=== PATIENT | female | born 1945 | race Caucasian/White ===

== ENCOUNTER 2023-07-27 07:07 | Inpatient (IN) | payer MEDICARE, OTHER ==
[~2023-07-27] VITALS: Ht 162.6 cm; Wt 56.0 kg
[2023-07-31] VITALS (8 sets, daily range): BP systolic 111–133; BP diastolic 76–86; PULSE 81–98; TEMP 97.7–98.1
--- NOTE | 2023-07-31 08:35 | NUR ---
PT DIRECT ADMITTED FOR INITIATION OF SOTALOL. PT IS AXOX3. PT IS ON RA. PT AMBULATES INDEPENDENTLY WITH A STEADY GAIT. PT'S VSS. PT ORIENTED TO ROOM AND FLOOR. IV AND BLOOD DRAWN. GORDY PAUL WITH CARDIOLOGY NOTIFIED OF ARRIVAL. EKG DONE. TELE PLACED AND PT SHOWING AFIB IN THE 90'S.
[2023-07-31] MEDS ORDERED: ZYRTEC 10MG10 MG PO (08:58)
[2023-07-31] MEDS ORDERED: ELIQUIS 5MG PO (08:58)
[2023-07-31] MEDS ORDERED: CARDIZEM CD 24240 MG PO (09:00)
[2023-07-31 09:19] LABS: BASO # 0.1 K/mm3 (0.0-0.2); BASO % 0.9 % (0.0-2.0); EOS # 0.1 K/mm3 (0.0-0.7); EOS % 0.9 % (0.0-4.0); GRAN # 3.8 K/mm3 (1.4-6.5); GRAN % 64.5 % (42.2-75.2); HEMATOCRIT 44.6 % (37.0-47.0); HEMOGLOBIN 15.2 g/dl (12.5-16.0); LYMPH # 1.5 K/mm3 (1.2-3.4); LYMPH % 25.6 % (20.0-51.0); MEAN CELL VOLUME 91 fl (80.0-100.0); MEAN CORPUSCULAR HEMOGLOBIN 31 pg (27-31); MEAN CORPUSCULAR HGB CONC 34 g/dl (33.0-37.0); MONO # 0.5 K/mm3 (0.1-0.6); MONO % 7.9 % (1.7-9.3); PLATELET COUNT 267 K/mm3 (130-400); RED BLOOD COUNT 4.89 M/mm3 (4.10-5.30); REDCELL DISTRIBUTION WIDTH-CV 12.7 % (11.5-14.5)
[2023-07-31 09:34] LABS: ALBUMIN 4.1 gm/dL (3.4-4.8); BILIRUBIN,TOTAL 0.8 mg/dL (0.2-1.2); CALCIUM 10.1 mg/dL (8.4-10.2); CREATININE, serum 0.78 mg/dL (0.57-1.11); POTASSIUM 4.3 mmol/L (3.5-4.5); TOTAL PROTEIN 7.4 gm/dL (6.2-8.1)
[2023-07-31 10:35] LABS: INR 1.3 (0.8-3.0); PROTHROMBIN TIME 14.3 SECONDS (9.7-12.8)
--- NOTE | 2023-07-31 20:30 | NUR ---
Initial shift assessment done- denies any SOB/chest pain/palpitations. VSS. Up ad mason in room, steady on feet, , Tele on Afib 78/min, no requests at this time.
[2023-08-01] VITALS (12 sets, daily range): BP systolic 113–130; BP diastolic 68–91; PULSE 74–101; TEMP 97.3–98.3
--- NOTE | 2023-08-01 05:55 | NUR ---
No changes, No requests, Quiet night, tele on- Afib, rate 68/min,
[2023-08-01 07:57] LABS: BASO # 0.1 K/mm3 (0.0-0.2); EOS # 0.1 K/mm3 (0.0-0.7); GRAN # 2.6 K/mm3 (1.4-6.5); GRAN % 53.1 % (42.2-75.2); HEMATOCRIT 44.8 % (37.0-47.0); HEMOGLOBIN 15.1 g/dl (12.5-16.0); LYMPH # 1.9 K/mm3 (1.2-3.4); MEAN CELL VOLUME 91 fl (80.0-100.0); MEAN CORPUSCULAR HEMOGLOBIN 31 pg (27-31); MEAN CORPUSCULAR HGB CONC 34 g/dl (33.0-37.0); MEAN PLATELET VOLUME 10.3 fl (7.4-10.4); MONO # 0.3 K/mm3 (0.1-0.6); MONO % 6.7 % (1.7-9.3); PLATELET COUNT 289 K/mm3 (130-400); RED BLOOD COUNT 4.92 M/mm3 (4.10-5.30); REDCELL DISTRIBUTION WIDTH-CV 12.6 % (11.5-14.5)
[2023-08-01 08:19] LABS: CALCIUM 9.4 mg/dL (8.4-10.2); CREATININE, serum 0.8 mg/dL (0.57-1.11); MAGNESIUM 1.9 mg/dL (1.6-2.6); POTASSIUM 4.2 mmol/L (3.5-4.5)
--- NOTE | 2023-08-01 08:47 | NUR ---
Patient alert and oriented x4 this morning. Shift assessment complete, no new variances noted. Patient denies pain or discomfort, states she is just hungry and waiting for her breakfast tray. Tolerating medications well. Heart rhythm still noted to be in Afib, but HR is in 80s. HR noted to increase with long periods of activity while standing or walking. QTc 460 this morning. Patient denies dizziness. Patient currently in bed with call light in reach, all needs met at this time.
--- NOTE | 2023-08-01 10:50 | NUR ---
Wire Twister met with patient to discuss discharge planning. Patient lives alone in [place], [place] and remarked that she is . Patient stated her daughter, Tonya (ph#[phone]) lives about four miles away from her. Patient sees Dr. Mak in [place] for primary care and obtains medications from [facility] with no difficulties. Patient does not use any DME and is independent with ADLS. Patient advised her DPOA-HC is her daughter, Tonya. Patient plans to return home at time of discharge. Discharge Plan: Home
--- NOTE | 2023-08-01 12:30 | NUR ---
D: Initial visit: Warehouse Checker stopped by room on rounds. Pt was resting and content. A: Pt has no needs right now. Is connected well with her home rastafarian. Is a friend of the other automotive brake technician here at the hospital. P: Warehouse Checker informed pt that if she needed anything to let her nurse know. Warehouse Checker will follow up as needed.
--- NOTE | 2023-08-01 14:15 | NUR ---
Patient continues to have episodes of tachycardia ranging from 130s-190s when active in room. HR decreases when at rest. Patient complains of diarrhea episode, but states it is what she ate and it isn't the first time it has happened with the specific food. Patient denies pain at this time. Currently in bed with call light in reach, all needs met at this time. Patient encouraged to take activity slow and rest in bed.
[2023-08-01] MEDS ORDERED: RT ADVAIR HFA 1112 G IH (14:27)
[2023-08-01] MEDS ORDERED: PROAIR HFA0.09 MG/AC IH (14:27)
[2023-08-01] MEDS ORDERED: ASTELIN NASAL S34 ML NS (14:27)
[2023-08-01] MEDS ORDERED: CALCIUM 600 PLU1 TAB PO (14:28)
[2023-08-01] MEDS ORDERED: JUICE PLUS PO (14:29)
--- NOTE | 2023-08-01 16:50 | NUR ---
Patient denies ongoing nausea or diarrhea. HR remains tachycardic. Daughter at bedside, all needs met at this time.
--- NOTE | 2023-08-01 20:20 | NUR ---
Initial shift assessment done- pleasant, oriented x4, denies chest pain/palpitations/SOB. Up ad mason on own- very steady on feet. INT to L/FA. Tele on Afib 100-110, tachy if pt up walking in room, in bed now resting, rate 91/min. NPO after MN.
[2023-08-02] VITALS (9 sets, daily range): BP systolic 101–127; BP diastolic 58–89; PULSE 60–90; TEMP 97.3–98
--- NOTE | 2023-08-02 05:13 | NUR ---
Quiet night- no requests, VSS. Has been NPO since MO.
[2023-08-02 06:31] LABS: BASO % 0.8 % (0.0-2.0); EOS # 0.1 K/mm3 (0.0-0.7); EOS % 1.5 % (0.0-4.0); GRAN # 2.3 K/mm3 (1.4-6.5); GRAN % 46.8 % (42.2-75.2); HEMATOCRIT 41.3 % (37.0-47.0); HEMOGLOBIN 13.9 g/dl (12.5-16.0); LYMPH # 2.1 K/mm3 (1.2-3.4); LYMPH % 42.8 % (20.0-51.0); MEAN CELL VOLUME 91 fl (80.0-100.0); MEAN CORPUSCULAR HEMOGLOBIN 31 pg (27-31); MEAN CORPUSCULAR HGB CONC 34 g/dl (33.0-37.0); MEAN PLATELET VOLUME 10.1 fl (7.4-10.4); MONO # 0.4 K/mm3 (0.1-0.6); MONO % 7.9 % (1.7-9.3); PLATELET COUNT 257 K/mm3 (130-400); RED BLOOD COUNT 4.56 M/mm3 (4.10-5.30); REDCELL DISTRIBUTION WIDTH-CV 12.5 % (11.5-14.5)
[2023-08-02 06:41] LABS: CALCIUM 8.8 mg/dL (8.4-10.2); CREATININE, serum 0.73 mg/dL (0.57-1.11); POTASSIUM 3.7 mmol/L (3.5-4.5)
--- NOTE | 2023-08-02 07:00 | NUR ---
PT IS RESTING IN BED. PT IS RA. PT IS CONTROLLED AFIB ON TELE. PT IS AXOX3. PT IS NPO FOR CARDIOVERSION. PT HAS NO QUESTIONS REGARDING PROCEDURE. CONSENT SIGNED. PT INSTRUCTED TO CALL [facility] ALL NEEDS. 804-THIS RN CALLED RADIOLOGY PHYSICIAN ASSISTANT REGARDING PROCEDURE. THEY STATED SHE IS SCHEDULED FOR 1100. PT UPDATED.
--- NOTE | 2023-08-02 10:50 | NUR ---
PT TAKEN DOWN TO [facility]ATH[facility] FOR CARDIOVERSION.
[2023-08-02] MEDS ORDERED: BETAPACE 80MG80 MG PO (11:24)
--- NOTE | 2023-08-02 11:50 | NUR ---
Pt back in room after DCCV - daughter at bedside - bedside report given to HUMBERTO Madden - first set of vitals initiated and reviewed together. All questions answered for RN and pt
--- NOTE | 2023-08-02 11:52 | NUR ---
Patient came back from cardioversion. Alert and oriented x4, denies any pain or discomfort. BP 110/63.
--- NOTE | 2023-08-02 13:45 | NUR ---
IV AND TELE DC'D. DISCHARGE INSTRUCTIONS DISCUSSED WITH PT. DISCUSSED NEW MEDICATION SOTALOL. CLARIFIED WITH CARDIOLOGY REGARDING STOPPING CARDIZEM AT DISCHARGE DUE TO STARTING SOTALOL. FOLLOW UP APPOINTMENT REVIEWED. 9540-PT WHEELED OUT BY HAWA ARAUZ.
== END 2023-08-02 13:50 | disposition home or self-care (01) | DRG 310 ==
LOC: MEDICAL 07-31 07:10
PROVIDERS: ADMIT Internal Medicine Cardiovascular Disease
PROC: 5A2204Z Restoration of Cardiac Rhythm, Single (ICD-10-PCS; principal; 2023-08-02)
DX: I48.19 Other persistent atrial fibrillation (principal); I42.9 Cardiomyopathy, unspecified; I27.20 Pulmonary hypertension, unspecified; I34.0 Nonrheumatic mitral (valve) insufficiency; I25.10 Atherosclerotic heart disease of native coronary artery without angina pectoris; I10 Essential (primary) hypertension; J45.909 Unspecified asthma, uncomplicated; M19.90 Unspecified osteoarthritis, unspecified site; Z88.2 Allergy status to sulfonamides
CPT/HCPCS: J2704

== ENCOUNTER 2023-09-27 08:57 | Emergency (ER) | payer MEDICARE, OTHER ==
[~2023-09-27] VITALS: Ht 167.6 cm; Wt 56.8 kg
[~2023-09-27 08:57] MED LIST: ASTELIN NASAL S34 ML NS; BETAPACE 80MG80 MG PO; CALCIUM 600 PLU1 TAB PO; CARDIZEM CD 24240 MG PO; ELIQUIS 5MG PO; JUICE PLUS PO; PROAIR HFA0.09 MG/AC IH; RT ADVAIR HFA 1112 G IH; ZYRTEC 10MG10 MG PO
[2023-09-27 09:00] VITALS: TEMP 98.2
[2023-09-27 09:32] LABS: BASO % 0.6 % (0.0-2.0); EOS % 0.3 % (0.0-4.0); GRAN # 3.7 K/mm3 (1.4-6.5); GRAN % 56.2 % (42.2-75.2); HEMATOCRIT 47.4 % (37.0-47.0); HEMOGLOBIN 16.3 g/dl (12.5-16.0); LYMPH % 30.2 % (20.0-51.0); MEAN CELL VOLUME 91 fl (80.0-100.0); MEAN CORPUSCULAR HEMOGLOBIN 31 pg (27-31); MEAN CORPUSCULAR HGB CONC 34 g/dl (33.0-37.0); MEAN PLATELET VOLUME 9.9 fl (7.4-10.4); MONO # 0.8 K/mm3 (0.1-0.6); MONO % 12.5 % (1.7-9.3); PLATELET COUNT 272 K/mm3 (130-400); RED BLOOD COUNT 5.22 M/mm3 (4.10-5.30); REDCELL DISTRIBUTION WIDTH-CV 12.9 % (11.5-14.5)
[2023-09-27 09:45] LABS: ALANINE AMINOTRANSFERASE 45 U/L (0-55); ALBUMIN 3.9 gm/dL (3.4-4.8); ALKALINE PHOSPHATASE 98 U/L (40-150); ANION GAP 9 mmol/L (7-16); AST,SGOT 61 U/L (5-34); BILIRUBIN,TOTAL 0.6 mg/dL (0.2-1.2); BLOOD UREA NITROGEN 11 mg/dL (10-20); CALCIUM 10.2 mg/dL (8.4-10.2); CARBON DIOXIDE 25 mmol/L (23-31); CHLORIDE 101 mmol/L (98-107); CREATININE, serum 0.85 mg/dL (0.57-1.11); GLUCOSE 119 mg/dL (70-99); POTASSIUM 4.1 mmol/L (3.5-4.5); SODIUM 135 mmol/L (136-145); TOTAL PROTEIN 7.3 gm/dL (6.2-8.1)
[2023-09-27 09:54] LABS: TROPONIN-I < 0.010 ng/mL (0.00-0.033)
[2023-09-27 11:11] VITALS: BP 131/74; PULSE 72
== END 2023-09-27 11:20 | disposition home or self-care (01) ==
LOC: COL.ER 08:57
PROVIDERS: Family Medicine
DX: I48.91 Unspecified atrial fibrillation (principal); Z79.01 Long term (current) use of anticoagulants; Z79.899 Other long term (current) drug therapy; Z98.890 Other specified postprocedural states